=== PATIENT | male | born 1960 | race Caucasian/White ===

== ENCOUNTER 2023-12-14 18:29 | Inpatient (IN) | payer MEDICARE, OTHER ==
--- NOTE | 2023-12-14 19:15 | ED ---
Dizziness HPI - General Chief Complaint: Dizziness Stated Complaint: low bp Time Seen by Provider: 12/14/23 18:35 Source: patient, RN notes reviewed, old records reviewed Mode of arrival: EMS Limitations: no limitations - History of Present Illness Initial Comments: This is a 63-year-old male the ER for evaluation. Patient presents today for evaluation regards to weakness abdominal pain nausea no vomiting. No travel history no sick contacts. MD Complaint: dizziness, lightheadedness -: days(s) Timing: sudden onset, gradual onset Description: lightheadedness, off-balance, nausea History of Same: No History of Trauma: No Severity: moderate Improves With: nothing Worsens With: nothing Associated Symptoms: loss of appetite, malaise, weakness - Related Data Home Medications Medication Instructions Recorded Confirmed Aspirin 81 mg PO DAILY 12/14/23 12/14/23 Atorvastatin [Lipitor] 40 mg PO HS 12/14/23 12/14/23 DULoxetine HCL [Cymbalta] 60 mg PO DAILY 12/14/23 12/14/23 Insulin Detemir [Levemir Flexpen] 10 units SQ HS 12/14/23 12/14/23 Insulin Regular, Human [NovoLIN R] See Protocol SQ ACHS 12/14/23 12/14/23 Losartan [Cozaar] 25 mg PO DAILY 12/14/23 12/14/23 Metoprolol Tartrate [Lopressor] 25 mg PO BID 12/14/23 12/14/23 Pregabalin [Lyrica] 75 mg PO TID 12/14/23 12/14/23 traZODone HCL [Desyrel] 50 - 150 mg PO HS PRN 12/14/23 12/14/23 Previous Rx's Medication Instructions Recorded Folic Acid 1 mg PO DAILY #30 tab 12/17/23 Magnesium Oxide [Mag-Ox] 400 mg PO TID 5 Days #15 tab 12/17/23 Multivitamins, Thera [Multivitamin 1 each PO DAILY #30 tab 12/17/23 (formulary)] Thiamine [Vitamin B-1] 100 mg PO DAILY #30 tab 12/17/23 Allergies Allergy/AdvReac Type Severity Reaction Status Date / Time No Known Allergies Allergy Verified 12/14/23 20:50 Review of Systems ROS Statement: Those systems with pertinent positive or pertinent negative responses have been documented in the HPI. ROS Other: All systems not noted in ROS Statement are negative. Past Medical History Past Medical History: Diabetes Mellitus Past Surgical History: Joint Replacement Smoking Status: Former smoker Past Alcohol Use History: Abuse Past Drug Use History: None Reported General Exam Limitations: no limitations General appearance: alert, in no apparent distress Head exam: Present: atraumatic, normocephalic, normal inspection Eye exam: Present: normal appearance, PERRL, EOMI. Absent: scleral icterus, conjunctival injection, periorbital swelling ENT exam: Present: normal exam, mucous membranes moist Neck exam: Present: normal inspection. Absent: tenderness, meningismus, lymphadenopathy Respiratory exam: Present: normal lung sounds bilaterally. Absent: respiratory distress, wheezes, rales, rhonchi, stridor Cardiovascular Exam: Present: regular rate, normal rhythm, normal heart sounds. Absent: systolic murmur, diastolic murmur, rubs, gallop, clicks GI/Abdominal exam: Present: soft, normal bowel sounds. Absent: distended, tenderness, guarding, rebound, rigid Extremities exam: Present: normal inspection, full ROM, normal capillary refill. Absent: tenderness, pedal edema, joint swelling, calf tenderness Back exam: Present: normal inspection Neurological exam: Present: alert, oriented X3, CN II-XII intact Psychiatric exam: Present: normal affect, normal mood Skin exam: Present: warm, dry, intact, normal color. Absent: rash Course Vital Signs 12/14/23 12/14/23 12/14/23 18:38 19:04 19:31 Temperature 97.9 F Pulse Rate 71 71 77 Respiratory 16 16 19 Rate Blood Pressure 96/50 118/64 126/66 O2 Sat by Pulse 96 95 95 Oximetry 12/14/23 21:00 Temperature Pulse Rate 72 Respiratory 19 Rate Blood Pressure 118/68 O2 Sat by Pulse 93 L Oximetry - Reevaluation(s) Reevaluation #1: 12/14/23 19:14 Medical records reviewed Reevaluation #2: 12/14/23 20:05 Patient's symptoms are unchanged Reevaluation #3: 12/14/23 20:05 Patient informed of results and questions answered Reevaluation #4: Was pt. sent in by a medical professional or institution (, PA, FENCE MACHINE OPERATOR, urgent care, hospital, or [facility]...) When possible be specific @ -no Did you speak to anyone other than the patient for history (EMS, parent, family, police, friend...)? What history was obtained from this source @ -no Did you review nursing and triage notes (agree or disagree)? Why? @ -agree Are old charts reviewed (outside hosp., previous admission, EMS record, old EKG, old radiological studies, urgent care reports/EKG's, [facility] records)? Report findings @ -yes Differential Diagnosis (chest pain, altered mental status, abdominal pain women, abdominal pain men, vaginal bleeding, weakness, fever, dyspnea, syncope, headache, dizziness, GI bleed, back pain, seizure, CVA, palpatations, mental health, musculoskeletal)? @ -prior EKG interpreted by me (3pts min.). @ -yes X-rays interpreted by me (1pt min.). @ -no CT interpreted by me (1pt min.). @ -no U/S interpreted by me (1pt. min.). @ -no What testing was considered but not performed or refused? (CT, X-rays, U/S, labs)? Why? @ -none What meds were considered but not given or refused? Why? @ -none Did you discuss the management of the patient with other professionals (professionals i.e. DrLarry, PA, FENCE MACHINE OPERATOR, lab, RT, psych nurse, web content & social media manager, locomotive supervisor, teacher, aoc aadc operations staff officer, community case manager)? Give summary @ -no Was smoking cessation discussed for >3mins.? @ -no Was critical care preformed (if so, how long)? @ -no Were there social determinants of health that impacted care today? How? (Homelessness, low income, unemployed, alcoholism, drug addiction, transportation, low edu. Level, literacy, decrease access to med. care, fpc, rehab)? @ -none Was there de-escalation of care discussed even if they declined (Discuss DNR or withdrawal of care, Hospice)? DNR status @ -no What co-morbidities impacted this encounter? (DM, HTN, Smoking, COPD, CAD, Cancer, CVA, ARF, Chemo, Hep., AIDS, mental health diagnosis, sleep apnea, morbid obesity)? @ -none Was patient admitted / discharged? Hospital course, mention meds given and route, prescriptions, significant lab abnormalities, going to OR and other pertinent info. @ - 63 male to ER for evaluation of severe dizziness and weakness severe dehydration with alcohol withdrawal. Patient will be admitted for electrolyte replacement and supportive care Admitted Undiagnosed new problem with uncertain prognosis? @ -no Drug Therapy requiring intensive monitoring for toxicity (Heparin, Nitro, Insulin, Cardizem)? @ -no Were any procedures done? @ -no Diagnosis/symptom? @ -Alcohol withdrawal Acute, or Chronic, or Acute on Chronic? @ -Acute Uncomplicated (without systemic symptoms) or Complicated (systemic symptoms)? @ -Complicated Side effects of treatment? @ -no Exacerbation, Progression, or Severe Exacerbation? @ -exacerbation Poses a threat to life or bodily function? How? (Chest pain, USA, NE, pneumonia, PE, COPD, DKA, ARF, appy, cholecystitis, CVA, Diverticulitis, Homicidal, Suicidal, threat to staff... and all critical care pts) @ -yes Reevaluation #5: Differential Dizziness: Benign paroxysmal positional Vertigo, Menieres disease, otitis media, acoustic neuroma, vertebrobasilar insufficiency, cerebellar stroke, encephalitis, hypovolemic, arrhythmia, coronary artery syndrome, anemia, this is not meant to be an all-inclusive list - Consultations Consultation #1: Spoke with [facility] who agrees to admit this patient EKG Findings - EKG Comments: EKG Findings:: EKG is sinus 71 [place] 177 QRS 82 QTc 414 - EKG Results: EKG: interpreted by STAN Medical Decision Making - Medical Decision Making 63 male to ER for evaluation of severe dizziness and weakness severe dehydration with alcohol withdrawal. Patient will be admitted for electrolyte replacement and supportive care - Lab Data Result diagrams: 12/16/23 04:56 12/17/23 06:31 Lab Results 12/14/23 12/14/23 12/14/23 Range/Units 18:48 18:48 18:48 WBC 7.3 (3.8-10.6) k/uL RBC 3.60 L (4.30-5.90) m/uL Hgb 11.8 L (13.0-17.5) gm/dL Hct 35.0 L (39.0-53.0) % MCV 97.3 (80.0-100.0) fL MCH 32.7 (25.0-35.0) pg MCHC 33.6 (31.0-37.0) g/dL RDW 13.1 (11.5-15.5) % Plt Count 182 (150-450) k/uL MPV 9.4 Neutrophils % 73 % Lymphocytes % 11 % Monocytes % 11 % Eosinophils % 0 % Basophils % 1 % Neutrophils # 5.3 (1.3-7.7) k/uL Lymphocytes # 0.8 L (1.0-4.8) k/uL Monocytes # 0.8 (0-1.0) k/uL Eosinophils # 0.0 (0-0.7) k/uL Basophils # 0.1 (0-0.2) k/uL PT 11.1 (10.0-12.5) sec INR 1.0 (<1.2) APTT 26.5 (22.0-30.0) sec Sodium 135 L (137-145) mmol/L Potassium 3.1 L (3.5-5.1) mmol/L Chloride 106 (98-107) mmol/L Carbon Dioxide 19 L (22-30) mmol/L Anion Gap 10 mmol/L BUN 18 (9-20) mg/dL Creatinine 1.00 (0.66-1.25) mg/dL Est GFR (CKD-EPI)AfAm >90 (>60 ml/min/1.73 sqM) Est GFR (CKD-EPI)NonAf 80 (>60 ml/min/1.73 sqM) Glucose 221 H (74-99) mg/dL Plasma Lactic Acid David (0.7-2.0) mmol/L Calcium 9.0 (8.4-10.2) mg/dL Phosphorus 4.9 H (2.5-4.5) mg/dL Magnesium 1.1 L (1.6-2.3) mg/dL Total Bilirubin 0.3 (0.2-1.3) mg/dL AST 89 H (17-59) U/L ALT 31 (4-49) U/L Alkaline Phosphatase 82 (38-126) U/L Troponin I (0.000-0.034) ng/mL NT-Pro-B Natriuret Pep 2520 pg/mL Total Protein 5.8 L (6.3-8.2) g/dL Albumin 3.2 L (3.5-5.0) g/dL 03/29/24 03/29/24 Range/Units 18:48 18:48 WBC (3.8-10.6) k/uL RBC (4.30-5.90) m/uL Hgb (13.0-17.5) gm/dL Hct (39.0-53.0) % MCV (80.0-100.0) fL MCH (25.0-35.0) pg MCHC (31.0-37.0) g/dL RDW (11.5-15.5) % Plt Count (150-450) k/uL MPV Neutrophils % % Lymphocytes % % Monocytes % % Eosinophils % % Basophils % % Neutrophils # (1.3-7.7) k/uL Lymphocytes # (1.0-4.8) k/uL Monocytes # (0-1.0) k/uL Eosinophils # (0-0.7) k/uL Basophils # (0-0.2) k/uL PT (10.0-12.5) sec INR (<1.2) APTT (22.0-30.0) sec Sodium (137-145) mmol/L Potassium (3.5-5.1) mmol/L Chloride (98-107) mmol/L Carbon Dioxide (22-30) mmol/L Anion Gap mmol/L BUN (9-20) mg/dL Creatinine (0.66-1.25) mg/dL Est GFR (CKD-EPI)AfAm (>60 ml/min/1.73 sqM) Est GFR (CKD-EPI)NonAf (>60 ml/min/1.73 sqM) Glucose (74-99) mg/dL Plasma Lactic Acid David 1.7 (0.7-2.0) mmol/L Calcium (8.4-10.2) mg/dL Phosphorus (2.5-4.5) mg/dL Magnesium (1.6-2.3) mg/dL Total Bilirubin (0.2-1.3) mg/dL AST (17-59) U/L ALT (4-49) U/L Alkaline Phosphatase (38-126) U/L Troponin I 0.016 (0.000-0.034) ng/mL NT-Pro-B Natriuret Pep pg/mL Total Protein (6.3-8.2) g/dL Albumin (3.5-5.0) g/dL - EKG Data -: EKG Interpreted by Me Disposition Clinical Impression: Dehydration, Hypokalemia, Hypomagnesemia, Alcohol withdrawal, Weakness Disposition: ADMITTED IP TO THIS HOSP Condition: Fair Is patient prescribed a controlled substance at d/c from ED?: No Time of Disposition: 20:00
[2023-12-14] MEDS: SODIUM CHLORIDE 0.9% 1,000 ML IV STA ×2 (19:26→19:30)
[2023-12-14] MEDS: SODIUM CHLORIDE 0.9% 500 ML 500 ML IV STA (19:27)
[2023-12-14 19:32] LABS: Basophils # (A) 0.1 k/uL (0-0.2); Basophils % (A) 1 %; Eosinophils % (A) 0 %; HGB 11.8 gm/dL (13.0-17.5); Lymphocytes # (A) 0.8 k/uL (1.0-4.8); Lymphocytes % (A) 11 %; MCH 32.7 pg (25.0-35.0); MCHC 33.6 g/dL (31.0-37.0); MCV 97.3 fL (80.0-100.0); Mean Platelet Volume 9.4; Monocytes # (A) 0.8 k/uL (0-1.0); Monocytes % (A) 11 %; Neutrophils # (A) 5.3 k/uL (1.3-7.7); Neutrophils % (A) 73 %; Platelet Count 182 k/uL (150-450); RDW 13.1 % (11.5-15.5); WBC 7.3 k/uL (3.8-10.6)
[2023-12-14 19:37] LABS: ALT 31 U/L (4-49); AST 89 U/L (17-59); African American GFR (CKD) >90 (>60 ml/min/1.73 sqM); Albumin 3.2 g/dL (3.5-5.0); Alkaline Phosphatase 82 U/L (38-126); Anion Gap 10 mmol/L; Blood Urea Nitrogen 18 mg/dL (9-20); Carbon Dioxide 19 mmol/L (22-30); Chloride 106 mmol/L (98-107); Glucose 221 mg/dL (74-99); Magnesium 1.1 mg/dL (1.6-2.3); Non-African American GFR(CKD) 80 (>60 ml/min/1.73 sqM); Phosphorus 4.9 mg/dL (2.5-4.5); Potassium 3.1 mmol/L (3.5-5.1); Sodium 135 mmol/L (137-145); Total Bilirubin 0.3 mg/dL (0.2-1.3); Total Protein 5.8 g/dL (6.3-8.2)
[2023-12-14 19:39] LABS: Partial Thromboplastin Time 26.5 sec (22.0-30.0); Prothrombin Time 11.1 sec (10.0-12.5)
[2023-12-14] MEDS: ONDANSETRON 4 MG/2 ML VIAL IVP STA (19:41)
[2023-12-14 19:46] LABS: NT-Pro-B-Type Natriuretic Pept 2520 pg/mL
[2023-12-14] MEDS ORDERED: ONDANSETRON 4 MG/2 ML VIAL IVP PRN (20:02)
[2023-12-14] MEDS ORDERED: LORazepam 0.5 MG TAB PO PRN (20:02)
[2023-12-14] MEDS ORDERED: NALOXONE 0.4 MG/ML 1 ML VIAL IV PRN (20:02)
[2023-12-14] MEDS ORDERED: LORazepam 1 MG TAB PO PRN ×4 (20:02)
[2023-12-14] MEDS ORDERED: LORazepam 2 MG/ML INJ IV PRN ×3 (20:02)
[2023-12-14] MEDS: SODIUM CHLORIDE 0.9% 1,000 ML IV SCH (20:29)
[2023-12-14] MEDS: MAGNESIUM SULFATE-D5W PMX 1 GM in DEXTROSE/WATER 1 100ML.BAG IVPB SCH (20:31)
[2023-12-14] MEDS: POTASSIUM BICARBONATE/CIT AC 20 MEQ TABLET.EFF PO ONE ×2 (20:33→21:19)
[2023-12-14] MEDS: MAGNESIUM OXIDE 400 MG TAB PO STA (20:33)
[2023-12-15 06:49] LABS: Glucose,Whole Blood 226 mg/dL (70-110)
[2023-12-15] MEDS ORDERED: DEXTROSE 50% SYRINGE 50 ML IVP PRN ×2 (07:19)
[2023-12-15 07:46] LABS: Basophils % (A) 0 %; Eosinophils % (A) 0 %; HCT 33.2 % (39.0-53.0); HGB 11.1 gm/dL (13.0-17.5); Lymphocytes # (A) 0.7 k/uL (1.0-4.8); Lymphocytes % (A) 9 %; MCH 32.6 pg (25.0-35.0); MCHC 33.3 g/dL (31.0-37.0); MCV 97.9 fL (80.0-100.0); Mean Platelet Volume 8.7; Monocytes # (A) 0.7 k/uL (0-1.0); Monocytes % (A) 8 %; Neutrophils # (A) 6.4 k/uL (1.3-7.7); Neutrophils % (A) 80 %; Platelet Count 158 k/uL (150-450); RBC 3.39 m/uL (4.30-5.90); RDW 12.6 % (11.5-15.5)
[2023-12-15 08:00] LABS: ALT 28 U/L (4-49); AST 65 U/L (17-59); African American GFR (CKD) >90 (>60 ml/min/1.73 sqM); Albumin 2.6 g/dL (3.5-5.0); Alkaline Phosphatase 77 U/L (38-126); Anion Gap 9 mmol/L; Blood Urea Nitrogen 15 mg/dL (9-20); Calcium 7.8 mg/dL (8.4-10.2); Carbon Dioxide 16 mmol/L (22-30); Chloride 110 mmol/L (98-107); Globulin 2.6 g/dL; Glucose 219 mg/dL (74-99); Magnesium 1.3 mg/dL (1.6-2.3); Non-African American GFR(CKD) >90 (>60 ml/min/1.73 sqM); Phosphorus 3.1 mg/dL (2.5-4.5); Potassium 3.1 mmol/L (3.5-5.1); Sodium 135 mmol/L (137-145); Total Bilirubin 0.4 mg/dL (0.2-1.3); Total Protein 5.2 g/dL (6.3-8.2)
[2023-12-15] MEDS: PANTOPRAZOLE 40 MG/10 ML VIAL IV SCH (08:27)
[2023-12-15] MEDS: ASPIRIN 81 MG PO SCH (09:27)
[2023-12-15] MEDS: METOPROLOL TARTRATE 25 MG TAB PO SCH (09:27)
[2023-12-15] MEDS: THIAMINE 100 MG TAB PO SCH (09:28)
[2023-12-15] MEDS: FOLIC ACID 1 MG TAB PO SCH (09:28)
[2023-12-15] MEDS: PREGABALIN 75 MG CAP PO SCH (09:28)
[2023-12-15] MEDS: LOSARTAN 25 MG TAB PO SCH (09:28)
[2023-12-15] MEDS: MULTIVITAMINS, THERA 1 EACH TAB PO SCH (09:28)
[2023-12-15] MEDS: DULoxetine HCL 60 MG CAPSULE.DR PO SCH (09:28)
[2023-12-15] MEDS: INSULIN ASPART (NovoLOG) 100 UNIT/ML VIAL SQ SCH (09:31)
[2023-12-15 11:46] LABS: Glucose,Whole Blood 235 mg/dL (70-110)
[2023-12-15 16:44] LABS: Glucose,Whole Blood 256 mg/dL (70-110)
--- NOTE | 2023-12-15 17:10 | P.HPIM ---
History of Present Illness H&P Date: 12/15/23 Chief Complaint: Dizziness/weakness 63-year-old male patient, history of diabetes mellitus, alcohol abuse, presented to ED for evaluation of severe dizziness and weakness; patient does not have a longstanding history of alcohol use and is currently in rehab at [place]; according to the records patient came to the nursing staff and complained of feeling dizzy and unsteady and being incontinent ; vital signs at the facility revealed a pulse of 74, temperature of 97.5, respiration 18 and blood pressure of 76/51 with O2 saturation of 96% and blood glucose of 331 Patient was evaluated in ED and was found to be severely dehydrated and in alcohol withdrawal Blood work completed in ED reveals a WBC of 7.3, hemoglobin of 11.8 and platelet count of 182, sodium 135, potassium 3.1, BUNs/creatinine of 18/1.0 and blood glucose of 221 EKG Findings:: EKG is sinus 71 MD 177 QRS 82 QTc 414 Review of Systems REVIEW OF SYSTEMS: CONSTITUTIONAL: No fever, no malaise, no fatigue. HEENT: No recent visual problems or hearing problems. Denied any sore throat. CARDIOVASCULAR: No chest pain, orthopnea, PND, no palpitations, no syncope. PULMONARY: No shortness of breath, no cough, no hemoptysis. GASTROINTESTINAL: No diarrhea, no nausea, no vomiting, no abdominal pain. NEUROLOGICAL: No headaches, no weakness, no numbness. HEMATOLOGICAL: Denies any bleeding or petechiae. GENITOURINARY: Denies any burning micturition, frequency, or urgency. MUSCULOSKELETAL/RHEUMATOLOGICAL: Denies any joint pain, swelling, or any muscle pain. ENDOCRINE: Denies any polyuria or polydipsia. The rest of the 14-point review of systems is negative. Past Medical History Past Medical History: Diabetes Mellitus History of Any Multi-Drug Resistant Organisms: None Reported Past Surgical History: Joint Replacement Additional Past Surgical History / Comment(s): left knee replacement Past Anesthesia/Blood Transfusion Reactions: No Reported Reaction Smoking Status: Former smoker Past Alcohol Use History: Abuse Past Drug Use History: None Reported Medications and Allergies Home Medications Medication Instructions Recorded Confirmed Type Aspirin 81 mg PO DAILY 12/14/23 12/14/23 History Atorvastatin [Lipitor] 40 mg PO HS 12/14/23 12/14/23 History DULoxetine HCL [Cymbalta] 60 mg PO DAILY 12/14/23 12/14/23 History Insulin Detemir [Levemir Flexpen] 10 units SQ HS 12/14/23 12/14/23 History Insulin Regular, Human [NovoLIN R] See Protocol SQ ACHS 12/14/23 12/14/23 History Losartan [Cozaar] 25 mg PO DAILY 12/14/23 12/14/23 History Metoprolol Tartrate [Lopressor] 25 mg PO BID 12/14/23 12/14/23 History Pregabalin [Lyrica] 75 mg PO TID 12/14/23 12/14/23 History traZODone HCL [Desyrel] 50 - 150 mg PO HS PRN 12/14/23 12/14/23 History Allergies Allergy/AdvReac Type Severity Reaction Status Date / Time No Known Allergies Allergy Verified 12/14/23 20:50 Physical Exam Vitals: Vital Signs Temp Pulse Pulse Resp BP BP Pulse Ox 12/15/23 08:30 82 17 12/15/23 06:51 99.7 F H 82 17 117/63 96 12/15/23 01:55 99.3 F 80 20 158/88 95 12/14/23 22:59 98.7 F 72 16 151/87 95 12/14/23 21:00 72 19 118/68 93 L 12/14/23 19:31 77 19 126/66 95 12/14/23 19:04 71 16 118/64 95 12/14/23 18:38 97.9 F 71 16 96/50 96 Intake and Output 12/14/23 12/15/23 12/15/23 22:59 06:59 14:59 Intake Total 1730 Output Total 1000 750 Balance 730 -750 Intake: Intake, IV Titration 780 Amount Sodium Chloride 0.9% 1, 780 000 ml @ 130 mls/hr IV . Q7H42M STA Rx#:[id number] Oral 950 Output: Urine 1000 750 Other: Voiding Method Urinal # Voids 2 # Bowel Movements 1 Weight 78.925 kg 78.925 kg General appearance: alert, in no apparent distress Head exam: Present: atraumatic, normocephalic, normal inspection Eye exam: Present: normal appearance, PERRL, EOMI. Absent: scleral icterus, conjunctival injection, periorbital swelling Neck exam: Present: normal inspection. Absent: tenderness, meningismus, lymphadenopathy Respiratory exam: Present: normal lung sounds bilaterally. Absent: respiratory distress, wheezes, rales, rhonchi, stridor Cardiovascular Exam: Present: regular rate, normal rhythm, normal heart sounds. Absent: systolic murmur, diastolic murmur, rubs, gallop, clicks GI/Abdominal exam: Present: soft, normal bowel sounds. Absent: distended, tenderness, guarding, rebound, rigid Extremities exam: Present: normal inspection, full ROM, normal capillary refill. Absent: tenderness, pedal edema, joint swelling, calf tenderness Neurological exam: Present: alert, oriented X3, CN II-XII intact Psychiatric exam: Present: normal affect, normal mood Skin exam: Present: warm, dry, intact, normal color. Absent: rash Results CBC & Chem 7: 12/15/23 07:19 12/15/23 07:19 Labs: Abnormal Lab Results - Last 24 Hours (Table) 12/14/23 12/14/23 12/15/23 Range/Units 18:48 18:48 06:46 RBC 3.60 L (4.30-5.90) m/uL Hgb 11.8 L (13.0-17.5) gm/dL Hct 35.0 L (39.0-53.0) % Lymphocytes # 0.8 L (1.0-4.8) k/uL Sodium 135 L (137-145) mmol/L Potassium 3.1 L (3.5-5.1) mmol/L Chloride (98-107) mmol/L Carbon Dioxide 19 L (22-30) mmol/L Glucose 221 H (74-99) mg/dL POC Glucose (mg/dL) 226 H (70-110) mg/dL Calcium (8.4-10.2) mg/dL Phosphorus 4.9 H (2.5-4.5) mg/dL Magnesium 1.1 L (1.6-2.3) mg/dL AST 89 H (17-59) U/L Total Protein 5.8 L (6.3-8.2) g/dL Albumin 3.2 L (3.5-5.0) g/dL 12/15/23 12/15/23 12/15/23 Range/Units 07:19 07:19 11:45 RBC 3.39 L (4.30-5.90) m/uL Hgb 11.1 L (13.0-17.5) gm/dL Hct 33.2 L (39.0-53.0) % Lymphocytes # 0.7 L (1.0-4.8) k/uL Sodium 135 L (137-145) mmol/L Potassium 3.1 L (3.5-5.1) mmol/L Chloride 110 H (98-107) mmol/L Carbon Dioxide 16 L (22-30) mmol/L Glucose 219 H (74-99) mg/dL POC Glucose (mg/dL) 235 H (70-110) mg/dL Calcium 7.8 L (8.4-10.2) mg/dL Phosphorus (2.5-4.5) mg/dL Magnesium 1.3 L (1.6-2.3) mg/dL AST 65 H (17-59) U/L Total Protein 5.2 L (6.3-8.2) g/dL Albumin 2.6 L (3.5-5.0) g/dL Assessment and Plan Assessment: 1. Alcohol withdrawal -- Patient has been placed on CIWA protocol with Ativan; continue with IV fluids 2. Hyperglycemia without acidosis/diabetes mellitus with long-term insulin use; patient takes Levemir 10 units subcu nightly; we will add Accu-Cheks before every meal and at bedtime with insulin sliding scale 3. Hypokalemia; supplemented in ED; will monitor electrolytes closely and supplement as needed 4. Dehydration; patient has been placed on IV fluids in form of normal saline at a rate of 35 cc an hour; we will monitor strict BARBARA's, daily weights, renal function electrolytes 5. Hypertension; Cozaar 25 mg daily; metoprolol 25 mg twice daily 6. Hyperlipidemia; Lipitor 40 mg p.o. nightly 7. Neuropathy; continue home dose of Lyrica 75 mg 3 times daily 8. Insomnia/sleep disorder; trazodone as needed DVT prophylaxis SCDs CODE STATUS full code
[2023-12-15] MEDS ORDERED: Potassium Replacement Protocol 1 EACH MISC MISCELLANE PRN (19:09)
[2023-12-15] MEDS: POTASSIUM CHLORIDE ER 20 MEQ TAB.ER PO SCH (19:28)
[2023-12-15 20:13] LABS: Glucose,Whole Blood 266 mg/dL (70-110)
[2023-12-15] MEDS: INSULIN DETEMIR (LEVEMIR) 100 UNIT/ML SYR SQ SCH (22:15)
[2023-12-15] MEDS: ACETAMINOPHEN TAB 325 MG TAB PO PRN (22:15)
[2023-12-15] MEDS: ATORVASTATIN 40 MG TAB PO SCH (22:15)
[2023-12-16 05:32] LABS: Glucose,Whole Blood 139 mg/dL (70-110)
[2023-12-16 09:21] LABS: Basophils # (A) 0.03 X 10*3/uL (0.00-0.10); Basophils % (A) 0.7 %; Eosinophils # (A) 0.13 X 10*3/uL (0.04-0.35); Eosinophils % (A) 3.2 %; HCT 30.8 % (39.6-50.0); HGB 10.4 g/dL (13.0-17.0); Lymphocytes # (A) 0.96 X 10*3/uL (0.90-5.00); Lymphocytes % (A) 23.9 %; MCH 32.1 pg (27.0-32.0); MCHC 33.8 g/dL (32.0-37.0); MCV 95.1 FL (80.0-97.0); Mean Platelet Volume 11.2 FL (9.5-12.2); Monocytes # (A) 0.66 X 10*3/uL (0.20-1.00); Monocytes % (A) 16.4 %; NRBC Per 100 WBC 0 X 10*3/uL (0.00-0.01); Neutrophils # (A) 2.23 X 10*3/uL (1.80-7.70); Neutrophils % (A) 55.6 %; Platelet Count 154 X 10*3/uL (140-440); RBC 3.24 X 10*6/uL (4.40-5.60); RDW 12.5 % (11.5-14.5); WBC 4.02 X 10*3/uL (4.50-10.00)
[2023-12-16 10:18] LABS: BUN/Creat Ratio 11.12 Ratio (12.00-20.00); Blood Urea Nitrogen 8.9 mg/dL (9.0-27.0); Calcium 7.5 mg/dL (8.7-10.3); Carbon Dioxide 16.7 mmol/L (21.6-31.8); Chloride 111 mmol/L (96-109); Glucose 163 mg/dL (70-110); Potassium 3.4 mmol/L (3.5-5.5); Sodium 137 mmol/L (135-145)
[2023-12-16] MEDS: POTASSIUM CHLORIDE ER 20 MEQ TAB.ER PO SCH (10:50)
[2023-12-16 11:46] LABS: Glucose,Whole Blood 279 mg/dL (70-110)
[2023-12-16] MEDS ORDERED: Magnesium Replacement Protocol 1 EACH MISC MISCELLANE PRN (13:34)
[2023-12-16] MEDS: MAGNESIUM SULFATE-D5W PMX 1 GM in DEXTROSE/WATER 1 100ML.BAG IVPB SCH (13:43)
--- NOTE | 2023-12-16 15:05 | P.PN ---
Subjective Progress Note Date: 12/16/23 63-year-old male patient, history of diabetes mellitus, alcohol abuse, presented to ED for evaluation of severe dizziness and weakness; patient does not have a longstanding history of alcohol use and is currently in rehab at [place]; according to the records patient came to the nursing staff and complained of feeling dizzy and unsteady and being incontinent ; vital signs at the facility revealed a pulse of 74, temperature of 97.5, respiration 18 and blood pressure of 76/51 with O2 saturation of 96% and blood glucose of 331 Patient was evaluated in ED and was found to be severely dehydrated and in alcohol withdrawal Blood work completed in ED reveals a WBC of 7.3, hemoglobin of 11.8 and platelet count of 182, sodium 135, potassium 3.1, BUNs/creatinine of 18/1.0 and blood glucose of 221 --Patient reports improvement in dizziness; feeling less shaky Lab review shows WBC of 4.02, hemoglobin 10.4 and platelet count of 154, sodium 137, potassium 3.4, BUNs/creatinine of 8.9/0.08 blood glucose ranging between 139-279; magnesium remains markedly low at 1.1 --We will supplement electrolytes with KCl 40 mg IV x 1 and magnesium sulfate 4 g IV x 1 and repeat electrolytes tomorrow morning Possible transfer back to [facility] if remains stable next 24 hours Objective - Vital Signs Vital signs: Vital Signs Temp 97.8 F 12/16/23 07:31 Pulse 65 12/16/23 08:06 Resp 20 12/16/23 08:06 BP 129/72 12/16/23 07:31 Pulse Ox 93 L 12/16/23 07:31 FiO2 Intake & Output 12/15/23 12/16/23 12/16/23 18:59 06:59 18:59 Intake Total 250 900 Output Total 1850 Balance -1600 900 Intake: Oral 250 900 Output: Urine 1850 Stool 0 Other: Voiding Method Urinal Urinal Urinal # Voids 3 # Bowel Movements 2 - Exam General appearance: alert, in no apparent distress Head exam: Present: atraumatic, normocephalic, normal inspection Eye exam: Present: normal appearance, PERRL, EOMI. Absent: scleral icterus, conjunctival injection, periorbital swelling Neck exam: Present: normal inspection. Absent: tenderness, meningismus, lymphadenopathy Respiratory exam: Present: normal lung sounds bilaterally. Absent: respiratory distress, wheezes, rales, rhonchi, stridor Cardiovascular Exam: Present: regular rate, normal rhythm, normal heart sounds. Absent: systolic murmur, diastolic murmur, rubs, gallop, clicks GI/Abdominal exam: Present: soft, normal bowel sounds. Absent: distended, tenderness, guarding, rebound, rigid Extremities exam: Present: normal inspection, full ROM, normal capillary refill. Absent: tenderness, pedal edema, joint swelling, calf tenderness Neurological exam: Present: alert, oriented X3, CN II-XII intact Psychiatric exam: Present: normal affect, normal mood Skin exam: Present: warm, dry, intact, normal color. Absent: rash - Labs CBC & Chem 7: 12/16/23 04:56 12/16/23 04:56 Labs: Abnormal Lab Results - Last 24 Hours (Table) 12/15/23 12/15/23 12/15/23 Range/Units 11:45 16:43 20:11 WBC (4.50-10.00) X 10*3/uL RBC (4.40-5.60) X 10*6/uL Hgb (13.0-17.0) g/dL Hct (39.6-50.0) % MCH (27.0-32.0) pg Potassium (3.5-5.5) mmol/L Chloride (96-109) mmol/L Carbon Dioxide (21.6-31.8) mmol/L BUN (9.0-27.0) mg/dL BUN/Creatinine Ratio (12.00-20.00) Ratio Glucose (70-110) mg/dL POC Glucose (mg/dL) 235 H 256 H 266 H (70-110) mg/dL Calcium (8.7-10.3) mg/dL 12/16/23 12/16/23 12/16/23 Range/Units 04:56 04:56 05:31 WBC 4.02 L (4.50-10.00) X 10*3/uL RBC 3.24 L (4.40-5.60) X 10*6/uL Hgb 10.4 L (13.0-17.0) g/dL Hct 30.8 L (39.6-50.0) % MCH 32.1 H (27.0-32.0) pg Potassium 3.4 L (3.5-5.5) mmol/L Chloride 111 H (96-109) mmol/L Carbon Dioxide 16.7 L (21.6-31.8) mmol/L BUN 8.9 L (9.0-27.0) mg/dL BUN/Creatinine Ratio 11.12 L (12.00-20.00) Ratio Glucose 163 H (70-110) mg/dL POC Glucose (mg/dL) 139 H (70-110) mg/dL Calcium 7.5 L (8.7-10.3) mg/dL Assessment and Plan Assessment: 1. Alcohol withdrawal -- Patient has been placed on CIWA protocol with Ativan; continue with IV fluids 2. Hyperglycemia without acidosis/diabetes mellitus with long-term insulin use; patient takes Levemir 10 units subcu nightly; we will add Accu-Cheks before every meal and at bedtime with insulin sliding scale 3. Hypokalemia; supplemented in ED; will monitor electrolytes closely and supplement as needed 4. Dehydration; patient has been placed on IV fluids in form of normal saline at a rate of 35 cc an hour; we will monitor strict BARBARA's, daily weights, renal function electrolytes 5. Hypertension; Cozaar 25 mg daily; metoprolol 25 mg twice daily 6. Hyperlipidemia; Lipitor 40 mg p.o. nightly 7. Neuropathy; continue home dose of Lyrica 75 mg 3 times daily 8. Insomnia/sleep disorder; trazodone as needed DVT prophylaxis SCDs CODE STATUS full code
[2023-12-16] MEDS ORDERED: MAGNESIUM SULFATE-D5W PMX 1 GM in DEXTROSE/WATER 1 100ML.BAG IVPB SCH (15:15)
[2023-12-16 16:32] LABS: Glucose,Whole Blood 274 mg/dL (70-110)
[2023-12-16 21:07] LABS: Glucose,Whole Blood 225 mg/dL (70-110)
[2023-12-17 05:57] LABS: Glucose,Whole Blood 105 mg/dL (70-110)
[2023-12-17] MEDS: PANTOPRAZOLE 40 MG TABLET PO SCH (06:17)
[2023-12-17 11:49] LABS: Glucose,Whole Blood 246 mg/dL (70-110)
[2023-12-17 12:21] LABS: BUN/Creat Ratio 8.86 Ratio (12.00-20.00); Blood Urea Nitrogen 6.2 mg/dL (9.0-27.0); Calcium 7.3 mg/dL (8.7-10.3); Carbon Dioxide 17.3 mmol/L (21.6-31.8); Chloride 111 mmol/L (96-109); Glucose 104 mg/dL (70-110); Magnesium 1.7 mg/dL (1.5-2.4); Potassium 3.6 mmol/L (3.5-5.5); Sodium 137 mmol/L (135-145)
[2023-12-17 16:26] VITALS: BP 153/84; PULSE 69; RESP 17; TEMP 99.6
[2023-12-17 16:33] LABS: Glucose,Whole Blood 280 mg/dL (70-110)
[2023-12-17] MEDS: MAGNESIUM OXIDE 400 MG TAB PO SCH (16:41)
[2023-12-17] MEDS: POTASSIUM CHLORIDE ER 20 MEQ TAB.ER PO STA (16:41)
--- NOTE | 2023-12-17 23:17 | P.DS ---
Providers Date of admission: 12/14/23 20:02 Attending physician: Maude Abarca Primary care physician: Physician Nonstaff Hospital Course: Diagnoses 1. Alcohol withdrawal 2. Hyperglycemia /diabetes mellitus with long-term insulin use 3. Hypokalemia; 4. Dehydration; 5. Hypertension; 6. Hyperlipidemia; 7. Neuropathy; 8. Insomnia/sleep disorder; 9, gastroenteritis most likely alcoholic effect versus viral versus other. Resolved Hospital course: 63-year-old male patient, history of diabetes mellitus, alcohol abuse, presented to ED for evaluation of severe dizziness and weakness; associated for his alcohol withdrawal. Patient was initially in [facility] for his substance abuse and alcohol withdrawal when he came to the front office representative complaining from dizziness and ataxia. Patient was transferred to the hospital where he was treated for alcohol withdrawal and also for acute gastroenteritis associated with his diarrhea most likely secondary to also alcohol intoxication and less likely viral infection which is improved now. Patient denies abdominal pain. He states he has regular bowel movement this morning. He has good appetite. No urinary complaint. No chest pain or dyspnea. Works fine with no difficulty. No ataxia no dizziness. No headache weakness or numbness. 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 Patient was instructed to follow up with PCP within one week and patient agrees Physical exam Gen: patient is a AAOx3, no distress CVS: S1-S2, RRR, no murmur Lungs: B/L CTA, no wheezing Abdomen: soft, no distention, no tenderness, positive bowel sounds Extremity: no leg edema or induration Time spent more than 35 minutes Patient Condition at Discharge: Fair Plan - Discharge Summary Discharge Rx Participant: No New Discharge Prescriptions: New Folic Acid 1 mg PO DAILY #30 tab Thiamine [Vitamin B-1] 100 mg PO DAILY #30 tab Magnesium Oxide [Mag-Ox] 400 mg PO TID 5 Days #15 tab Multivitamins, Thera [Multivitamin (formulary)] 1 each PO DAILY #30 tab Continue Metoprolol Tartrate [Lopressor] 25 mg PO BID Losartan [Cozaar] 25 mg PO DAILY DULoxetine HCL [Cymbalta] 60 mg PO DAILY traZODone HCL [Desyrel] 50 - 150 mg PO HS PRN PRN Reason: Insomnia Pregabalin [Lyrica] 75 mg PO TID Insulin Regular, Human [NovoLIN R] See Protocol SQ ACHS Insulin Detemir [Levemir Flexpen] 10 units SQ HS Atorvastatin [Lipitor] 40 mg PO HS Aspirin 81 mg PO DAILY Discharge Medication List Aspirin 81 mg PO DAILY 12/14/23 [History] Atorvastatin [Lipitor] 40 mg PO HS 12/14/23 [History] DULoxetine HCL [Cymbalta] 60 mg PO DAILY 12/14/23 [History] Insulin Detemir [Levemir Flexpen] 10 units SQ HS 12/14/23 [History] Insulin Regular, Human [NovoLIN R] See Protocol SQ ACHS 12/14/23 [History] Losartan [Cozaar] 25 mg PO DAILY 12/14/23 [History] Metoprolol Tartrate [Lopressor] 25 mg PO BID 12/14/23 [History] Pregabalin [Lyrica] 75 mg PO TID 12/14/23 [History] traZODone HCL [Desyrel] 50 - 150 mg PO HS PRN 12/14/23 [History] Folic Acid 1 mg PO DAILY #30 tab 12/17/23 [Rx] Magnesium Oxide [Mag-Ox] 400 mg PO TID 5 Days #15 tab 12/17/23 [Rx] Multivitamins, Thera [Multivitamin (formulary)] 1 each PO DAILY #30 tab 12/17/23 [Rx] Thiamine [Vitamin B-1] 100 mg PO DAILY #30 tab 12/17/23 [Rx] Follow up Appointment(s)/Referral(s): Nonstaff,Physician [Primary Care Provider] - 1-2 days Activity/Diet/Wound Care/Special Instructions: heart healthy diet activity is restricted till you see your doctor pt is to be discharged back to [facility] We recommend to follow up with your primary care doctor share as you informed the medical team you have his contact information, please call to make an appointment in 1 week Discharge Disposition: HOME SELF-CARE
== END 2023-12-17 17:07 | disposition home or self-care (01) | DRG 897 ==
LOC: EC 18:29 → 4SSUR 20:02
PROVIDERS: ADMIT Hospitalist; ATTEND Hospitalist
PROC: HZ2ZZZZ Detoxification Services for Substance Abuse Treatment (ICD-10-PCS; principal; 2023-12-14)
DX: F10.139 Alcohol abuse with withdrawal, unspecified (principal); K52.1 Toxic gastroenteritis and colitis; E11.42 Type 2 diabetes mellitus with diabetic polyneuropathy; A08.4 Viral intestinal infection, unspecified; E11.65 Type 2 diabetes mellitus with hyperglycemia; E78.5 Hyperlipidemia, unspecified; E83.42 Hypomagnesemia; Z71.41 Alcohol abuse counseling and surveillance of alcoholic; E86.0 Dehydration; E87.6 Hypokalemia; G47.00 Insomnia, unspecified; I10 Essential (primary) hypertension; Z79.4 Long term (current) use of insulin; Z79.82 Long term (current) use of aspirin; Z79.899 Other long term (current) drug therapy; Z87.891 Personal history of nicotine dependence; Z96.652 Presence of left artificial knee joint; R42 Dizziness and giddiness
CPT/HCPCS: 36415; 80048; 80053; 83036; 83605; 83735; 83880; 84100; 84132; 84484; 85025; 85610; 85730; 93005; 96365; 99285